=== PATIENT | male | born 1945 | race Caucasian/White ===

== ENCOUNTER 2023-06-08 13:26 | Outpatient (OUT) | payer MEDICARE, SELFPAY ==
--- NOTE | 2023-06-08 13:31 | ECG_ITS ---
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
--- NOTE | 2023-06-08 13:31 | XR_ITS ---
[address] [address] Patient Name: LING FELDER MRN: [id number] date: 1945 Sex: M Assigned Patient Location: [facility] Current Patient Location: [facility] Accession/Order Number: [id number] Exam Date: 06/08/2023 14:20 Report Date: 06/08/2023 14:43 At the request of: KHANH BROWN Procedure: XR chest 2V PROCEDURE: XR chest 2V DATE: 06/08/2023 1:20 PM CDT COMPARISONS: 02/20/2016 CLINICAL INDICATION: 77 years Male PRE OP EXAM FINDINGS: The cardiomediastinal silhouette and pulmonary vasculature are within normal limits. The lungs are clear. There is no evidence of pleural effusion or pneumothorax. XR/XR chest 2V IMPRESSION: Chest radiograph is within normal limits. Electronically authenticated by: RUPERT KAMARA Date: 06/08/2023 14:43
[2023-06-08 14:32] LABS: Basophils Absolute Auto 0.1 10^3/uL (0.0-0.1); Basophils Percent Auto 1.2 % (0.2-2.0); Eosinophils Absolute Auto 0.1 10^3/uL (0.0-0.7); Eosinophils Percent Auto 1.9 % (0.9-7.0); Hemoglobin 13.6 g/dL (14.0-18.0); Immature Granulocytes Abs Auto 0.01 10^3/uL (0.00-0.03); Immature Granulocytes Pct Auto 0.2 % (0.0-0.5); Lymphocytes Absolute Auto 0.9 10^3/uL (1.2-3.8); Lymphocytes Percent Auto 18.1 % (20.5-60.0); Mean Corpuscular HGB Conc 33.2 g/dL (29.9-35.2); Mean Corpuscular Hemoglobin 32.5 pg (25.9-34.0); Mean Corpuscular Volume 97.9 fL (80.0-94.0); Mean Platelet Volume 9.7 fL (9.5-13.5); Monocytes Absolute Auto 0.5 10^3/uL (0.3-0.8); Monocytes Percent Auto 10.7 % (1.7-12.0); Neutrophils Absolute Auto 3.3 10^3/uL (1.4-6.5); Neutrophils Percent Auto 67.9 % (43.0-75.0); Platelet Count 166 10^3/uL (150-450); Red Blood Count 4.19 10^6/uL (4.70-6.10); Red Cell Distribution Width 13.1 % (11.0-15.0); White Blood Count 4.9 10^3/uL (4.0-11.0)
[2023-06-08 14:35] LABS: Anion Gap 9.6; BUN Creatinine Ratio 5.5; Calcium 8.4 mg/dL (8.5-10.1); Carbon Dioxide 34.5 mmol/L (21.0-32.0); Chloride 101 mmol/L (98-107); Estimated GFR (African America >60 (>=60); Estimated GFR (Non-African Ame >60 (>=60); Glucose 141 mg/dL (74-106); Potassium 3.1 mmol/L (3.5-5.1); Sodium 142 mmol/L (136-145)
[2023-06-08 15:04] LABS: INR 1.08; Partial Thromboplastin Time 29.7 sec (22.3-36.2); Prothrombin Time 11.4 sec (9.0-11.6)
== END 2023-06-08 13:27 | disposition home or self-care (01) ==
LOC: PST 13:29
PROVIDERS: PCP Family Medicine; Visit Provider Otolaryngology
DX: Z01.810 Encounter for preprocedural cardiovascular examination (principal); Z01.812 Encounter for preprocedural laboratory examination; H69.82 Other specified disorders of Eustachian tube, left ear; J44.9 Chronic obstructive pulmonary disease, unspecified; Z79.01 Long term (current) use of anticoagulants
CPT/HCPCS: 36415; 71046; 80048; 85025; 85610; 85730; 93005

== ENCOUNTER 2023-06-15 08:25 | Emergency (ER) | payer MEDICARE, SELFPAY ==
[2023-06-15 08:27] VITALS: BP 135/71; PULSE 59; RESP 18; TEMP 36.4; O2SAT 96; BMI 21.3
--- NOTE | 2023-06-15 08:42 | ED_ITS ---
HPI - Extremity Problem General Chief complaint: Extremity Problem, Nontraumatic Stated complaint: LEFT FOOT WOUND Time Seen by Provider: 06/15/23 08:36 Source: patient Mode of arrival: Wheelchair Limitations: no limitations History of Present Illness HPI Narrative: this patient was sent here from outpatient surgery. He scheduled an elective procedure done today but they thought that he might have infection on his foot. In fact they noticed, the family that is, knows last night so dorsum of the foot left side starting to get red. He is not a diabetic. He has not had previous or recent fungal infections of the digits of his feet. He's otherwise no complaints. It's minimally tender. He is afebrile vital signs are stable. Related Data Home Medications Medication Instructions Recorded Confirmed albuterol sulfate 1.25 mg/3 mL 1.25 mg inhalation QID 06/08/23 06/08/23 solution for nebulization atorvastatin 10 mg tablet 10 mg PO DAILY 06/08/23 06/08/23 brimonidine 0.2 % eye drops 1 drp ophthalmic (eye) Q8H 06/08/23 06/08/23 citalopram 20 mg tablet (Celexa) 20 mg PO DAILY 06/08/23 06/08/23 donepezil 10 mg tablet (Aricept) 20 mg PO DAILY 06/08/23 06/08/23 dorzolamide 2 % eye drops 1 drp ophthalmic (eye) TID 06/08/23 06/08/23 fluticasone fur. 100 mcg-umeclid 1 inh inhalation DAILY 06/08/23 06/08/23 62.5 mcg-vilant 25 mcg inhalat.powder (Trelegy Ellipta) latanoprost 0.005 % eye drops 1 drp ophthalmic (eye) DAILY 06/08/23 06/08/23 meloxicam 7.5 mg tablet 7.5 mg PO DAILY 06/08/23 06/08/23 memantine 10 mg tablet 10 mg PO BID 06/08/23 06/08/23 Allergies Allergy/AdvReac Type Severity Reaction Status Date / Time No Known Drug Allergies Allergy Verified 06/08/23 13:43 [facility] Medical History (Updated 06/15/23 @ 08:45 by Clem Ewing MD) Surgical History (Updated 08/29/23 @ 13:54 by Anastasiia Jamil NP) Family History (Updated 06/08/23 @ 13:54 by Anastasiia Jamil NP) Other Family history of colon cancer Social History (Updated 06/08/23 @ 13:50 by Anastasiia Jamil NP) Within the past year, how often did you have a drink containing alcohol: never Score interpretation: A score less than 4 is consistent with normal alcohol consumption. Smoking status: Current every day smoker What tobacco products do you use: cigars Non-prescribed substance use: denies use Highest level of school completed/degree received: high school graduate Exam Narrative Exam Narrative: problem focused examination shows an be awake alert in no distress vital signs are stable does not appear ill or toxic. The extremity shows mild erythema over the dorsal surface of the left foot consistent with an early cellulitis. Intertriginous spaces are normal. There is no lymphangitis. There is no evidence of vascular insufficiency. He's had good pulsses. The rest the calf and lower extremity is normal. Constitutional Vital Signs, click to edit/add: Last Vital Signs Temp 97.6 F 06/15/23 08:27 Pulse 59 L 06/15/23 08:27 Resp 18 06/15/23 08:27 BP 135/71 06/15/23 08:27 Pulse Ox 96 06/15/23 08:27 O2 Del Method Room Air 06/15/23 08:27 Course Vital Signs Vital signs: Vital Signs Temperature 97.6 F 06/15/23 08:27 Pulse Rate 59 L 06/15/23 08:27 Respiratory Rate 18 06/15/23 08:27 Blood Pressure 135/71 06/15/23 08:27 Pulse Oximetry 96 06/15/23 08:27 Oxygen Delivery Method Room Air 06/15/23 08:27 Temperature 97.6 F 06/15/23 08:27 Pulse Rate 59 L 06/15/23 08:27 Respiratory Rate 18 06/15/23 08:27 Blood Pressure 135/71 06/15/23 08:27 Pulse Oximetry 96 06/15/23 08:27 Oxygen Delivery Method Room Air 06/15/23 08:27 MDM - Extremity (Nontraumatic) MDM Narrative Medical decision making narrative: this patient has an uncomplicated sepsis early cellulitis over the dorsum of the foot. We'll place him on Keflex. He felt primary care doctor Discharge Plan Discharge Chief Complaint: Extremity Problem, Nontraumatic Clinical Impression: Cellulitis of foot, left Patient Disposition: Home, Self-Care Time of Disposition Decision: 08:44 Prescriptions / Home Meds: No Action meloxicam 7.5 mg tablet 7.5 mg PO DAILY citalopram [Celexa] 20 mg tablet 20 mg PO DAILY memantine 10 mg tablet 10 mg PO BID donepezil [Aricept] 10 mg tablet 20 mg PO DAILY albuterol sulfate 1.25 mg/3 mL solution for nebulization 1.25 mg inhalation QID Trelegy Ellipta 100-62.5-25 mcg blister with device 1 inh inhalation DAILY brimonidine 0.2 % drops 1 drp ophthalmic (eye) Q8H latanoprost 0.005 % drops 1 drp ophthalmic (eye) DAILY dorzolamide 2 % drops 1 drp ophthalmic (eye) TID atorvastatin 10 mg tablet 10 mg PO DAILY Additional Instructions: Keflex four times a day/recheck with primary care doctor in three days Stand Alone Forms: Portal Instructions Referrals: JUSTIN LE [Primary Care Provider] - 1 week
== END 2023-06-15 08:52 | disposition home or self-care (01) ==
PROVIDERS: Emergency Provider Emergency Medicine Emergency Medical Services; PCP Family Medicine
DX: L03.116 Cellulitis of left lower limb (principal); Z79.899 Other long term (current) drug therapy; F17.290 Nicotine dependence, other tobacco product, uncomplicated
CPT/HCPCS: 99283

== ENCOUNTER 2023-06-28 14:38 | Outpatient (OUT) | payer MEDICARE, SELFPAY | END 2023-06-28 14:39 | disposition home or self-care (01) | LOC: PST 14:39 | PROVIDERS: PCP Family Medicine; Visit Provider Otolaryngology | DX: Z01.818 Encounter for other preprocedural examination (principal); H69.82 Other specified disorders of Eustachian tube, left ear; Z79.01 Long term (current) use of anticoagulants; J44.9 Chronic obstructive pulmonary disease, unspecified ==

== ENCOUNTER 2023-06-29 07:32 | Day surgery (SDC) | payer MEDICARE, SELFPAY ==
[2023-06-08 13:59] VITALS: BP 123/67; PULSE 60; RESP 20; TEMP 36.4; O2SAT 96; BMI 23.5
--- NOTE | 2023-06-15 08:23 | PC.NURSE ---
pt brought back to be admitted for or. Pt's left foot very red and hot to touch. Dr. Urbina notified and examined pt. Surgery cancellec and pt transported to ER. Monroe haines RN
[2023-06-29] VITALS (10 sets, daily range): BP systolic 126–149; BP diastolic 67–96; PULSE 74–87; RESP 10–22; TEMP 36.1–36.7; O2SAT 93–100; BMI 23.4
--- NOTE | 2023-06-29 | OP_ITS ---
OPERATION DATE: ??06/29/2023 PRIMARY CARE PHYSICIAN:? Janice Mckee M.D. SURGEON:? Zaynab Urbina M.D. PREOPERATIVE DIAGNOSIS:? Left otitis media with effusion and eustachian tube dysfunction. POSTOPERATIVE DIAGNOSIS:? Left otitis media with effusion and eustachian tube dysfunction. PROCEDURE:? Left myringotomy and tube and nasal endoscopy. ANESTHESIA:? General endotracheal. COMPLICATIONS:? None. FINDINGS:? Left serous effusion and no nasopharyngeal pathology evident. INDICATIONS:? This 77-year-old man presented with chronic left otitis media with effusion and conductive hearing loss. PROCEDURE:? Patient identified in the holding area and taken back to the OR where he was placed in the supine position.? After induction of general endotracheal anesthesia, the left ear was approached with the otomicroscope.? Cerumen cleaned from the canal using a cerumen curette and an anterior radial myringotomy was performed. ?Serous effusion was suctioned from the ear and a modified Don?s T-tube was folded, inserted through the myringotomy and opened in the middle ear using microdissection.? Afrin soaked pledgets were placed in the nose, and after waiting adequate time for decongestion, the left nose was approached with the nasal endoscope and the nasopharynx was carefully examined. There was no evidence of pathology in the nasopharynx that might have caused the patient?s eustachian tube dysfunction.? The patient was then awakened and taken to the recovery room in good condition. [facility]
[2023-06-29] MEDS: LACTATED RINGER'S SOLUTION 1,000 ML 50 ML IV (08:21)
== END 2023-06-29 11:41 | disposition home or self-care (01) ==
PROVIDERS: PCP Family Medicine; Visit Provider Otolaryngology
PROC: (CPT 31231; principal; 2023-06-29 08:40)
PROC: (CPT 31231; 2023-06-29 08:40)
DX: H69.82 Other specified disorders of Eustachian tube, left ear (principal); Z79.01 Long term (current) use of anticoagulants; J44.9 Chronic obstructive pulmonary disease, unspecified; F03.90 Unspecified dementia, unspecified severity, without behavioral disturbance, psychotic disturbance, mood disturbance, and anxiety; J45.20 Mild intermittent asthma, uncomplicated; E78.2 Mixed hyperlipidemia; H90.42 Sensorineural hearing loss, unilateral, left ear, with unrestricted hearing on the contralateral side; H65.92 Unspecified nonsuppurative otitis media, left ear; R33.9 Retention of urine, unspecified; Z79.899 Other long term (current) drug therapy; F17.290 Nicotine dependence, other tobacco product, uncomplicated; Z98.890 Other specified postprocedural states
CPT/HCPCS: 31231; 69436; 36415; 51798; 81001; 99284; J2704

== ENCOUNTER 2023-06-29 21:25 | Emergency (ER) | payer MEDICARE, SELFPAY ==
[2023-06-29 21:29] VITALS: BP 179/79; PULSE 71; RESP 20; TEMP 36.7; O2SAT 98; BMI 21.6
--- NOTE | 2023-06-29 21:41 | ED.MALEGU1 ---
HPI - Male Genitourinary General Chief complaint: Urogenital-Male Stated complaint: Post operative complications Time Seen by Provider: 06/29/23 21:34 Source: patient Mode of arrival: walk-in History of Present Illness HPI Narrative: tube placed under anesthesia left ear this AM. Able to urinate only once since he has been home. providing most of the history as the patient has dementia. He complains of pressure pain of his abdomen. Denies any pain of his ears. Emesis once tonight but no longer nauseated. No fever. Patient not able to provide his of history of difficulty starting urinary flow in the past etc Related Data Home Medications Medication Instructions Recorded Confirmed albuterol sulfate 1.25 mg/3 mL 1.25 mg inhalation QID 06/08/23 06/29/23 solution for nebulization atorvastatin 10 mg tablet 10 mg PO DAILY 06/08/23 06/29/23 brimonidine 0.2 % eye drops 1 drp ophthalmic (eye) Q8H 06/08/23 06/29/23 citalopram 20 mg tablet (Celexa) 20 mg PO DAILY 06/08/23 06/29/23 donepezil 10 mg tablet (Aricept) 20 mg PO DAILY 06/08/23 06/29/23 dorzolamide 2 % eye drops 1 drp ophthalmic (eye) TID 06/08/23 06/29/23 fluticasone fur. 100 mcg-umeclid 1 inh inhalation DAILY 06/08/23 06/29/23 62.5 mcg-vilant 25 mcg inhalat.powder (Trelegy Ellipta) latanoprost 0.005 % eye drops 1 drp ophthalmic (eye) DAILY 06/08/23 06/29/23 meloxicam 7.5 mg tablet 7.5 mg PO DAILY 06/08/23 06/29/23 memantine 10 mg tablet 10 mg PO BID 06/08/23 06/29/23 Allergies Allergy/AdvReac Type Severity Reaction Status Date / Time No Known Drug Allergies Allergy Verified 06/28/23 14:32 Review of Systems ROS Status of ROS 10 or more systems reviewed and unremarkable except as noted in history and below [facility] Medical History (Updated 06/29/23 @ 22:41 by Chet Hughes MD) Surgical History (Updated 06/08/23 @ 13:54 by Anastasiia Jamil NP) Family History (Updated 06/08/23 @ 13:54 by Anastasiia Jamil NP) Other Family history of colon cancer Social History (Updated 06/08/23 @ 13:50 by Anastasiia Jamil NP) Within the past year, how often did you have a drink containing alcohol: never Score interpretation: A score less than 4 is consistent with normal alcohol consumption. Smoking status: Current every day smoker What tobacco products do you use: cigars Non-prescribed substance use: denies use Highest level of school completed/degree received: high school graduate Exam Constitutional Vital Signs, click to edit/add: Last Vital Signs Temp 98.1 F 06/29/23 21:29 Pulse 71 06/29/23 21:29 Resp 06/29/23 21:29 BP 179/79 H 06/29/23 21:29 Pulse Ox 98 06/29/23 21:29 O2 Del Method Room Air 06/29/23 21:38 Common normals: no apparent distress, no limitations, alert and well nourished Eye Common normals: EOMs intact bilaterally Respiratory Common normals: normal respiratory effort, no retractions, no use of accessory muscles and clear to auscultation bilaterally Cardio Common normals: regular rate, regular rhythm, S1 normal heart sound and S2 normal heart sound GI Other: suprapubic tenderness and fullness Extremity Common normals: normal to inspection and full ROM Neuro Common normals: CN's II-XII intact bilaterally, moves all extremities and no sensory deficits noted Psych Appearance: grossly normal Course Vital Signs Vital signs: Vital Signs Temperature 98.1 F 06/29/23 21:29 Pulse Rate 06/29/23 21:29 Respiratory Rate 06/29/23 21:29 Blood Pressure 179/79 H 06/29/23 21:29 Pulse Oximetry 98 06/29/23 21:29 Oxygen Delivery Method Room Air 06/29/23 21:29 Temperature 98.1 F 06/29/23 21:29 Pulse Rate 71 06/29/23 21:29 Respiratory Rate 06/29/23 21:29 Blood Pressure 179/79 H 06/29/23 21:29 Pulse Oximetry 98 06/29/23 21:29 Oxygen Delivery Method Room Air 06/29/23 21:38 MDM - Male Genitourinary MDM Narrative Medical decision making narrative: patient presents with acute urinary retention. Had surgery of the left ear earlier today under anesthesia. Now presents and is not able to urinate. Bladder scan with >670cc urine. Alexander placed. UA with microscopic hematuria. patient discharged with leg bag in place and is to follow up with Urology Lab Data Labs: Lab Results 06/29/23 Range/Units 21:50 Urine Color Lt. yellow (YELLOW) Urine Clarity Clear (CLEAR) Urine pH 6.0 (5.0-9.0) Ur Specific [place] 1.010 (1.005-1.025) Urine Protein Negative (NEG/TRACE) mg/dL Urine Glucose (UA) Negative (NEGATIVE) mg/dL Urine Ketones Negative (NEGATIVE) mg/dL Urine Occult Blood Moderate A (NEGATIVE) Urine Nitrite Negative (NEGATIVE) Urine Bilirubin Negative (NEGATIVE) Urine Urobilinogen 0.2 (0.2-1.0) EU/dL Ur Leukocyte Esterase Negative (NEGATIVE) Urine RBC None seen (0-2) #/HPF Urine WBC None seen (NONE SEEN) #/HPF Ur Squamous Epith Cells None seen (NONE/RARE) #/LPF Urine Crystals None seen (None Seen) #/HPF Urine Bacteria None seen (NONE SEEN) #/HPF Urine Casts None seen (NONE SEEN) #/LPF Urine Mucus None seen (NONE SEEN) Discharge Plan Discharge Chief Complaint: Urogenital-Male Clinical Impression: Acute urinary retention Patient Disposition: Home, Self-Care Prescriptions / Home Meds: No Action meloxicam 7.5 mg tablet 7.5 mg PO DAILY citalopram [Celexa] 20 mg tablet 20 mg PO DAILY memantine 10 mg tablet 10 mg PO BID donepezil [Aricept] 10 mg tablet 20 mg PO DAILY albuterol sulfate 1.25 mg/3 mL solution for nebulization 1.25 mg inhalation QID Trelegy Ellipta 100-62.5-25 mcg blister with device 1 inh inhalation DAILY brimonidine 0.2 % drops 1 drp ophthalmic (eye) Q8H latanoprost 0.005 % drops 1 drp ophthalmic (eye) DAILY dorzolamide 2 % drops 1 drp ophthalmic (eye) TID atorvastatin 10 mg tablet 10 mg PO DAILY Instructions: Urinary Retention in Men (ED) Additional Instructions: follow up with Urologist Dr East. Call the office tomorrow for an appointment Stand Alone Forms: Portal Instructions Referrals: JUSTIN LE [Primary Care Provider] - 1 week
[2023-06-29 22:07] LABS: Bilirubin Urine NEGATIVE (NEGATIVE); Blood Urine MODERATE (NEGATIVE); Clarity Urine CLEAR (CLEAR); Color Urine LT. YELLOW (YELLOW); Glucose Urine UA NEGATIVE (NEGATIVE); Ketones Urine NEGATIVE (NEGATIVE); Leukocyte Esterase Urine NEGATIVE (NEGATIVE); Nitrite Urine NEGATIVE (NEGATIVE); Protein Urine NEGATIVE (NEG/TRACE); Urobilinogen Urine 0.2 EU/dL (0.2-1.0)
[2023-06-29 22:09] LABS: Urine Microscopic Indicated YES
[2023-06-29 22:27] LABS: Bacteria Urine NONE SEEN #/HPF (NONE SEEN); Cast Seen? NONE SEEN #/LPF (NONE SEEN); Crystals Seen? None Seen #/HPF (None Seen); Mucus Urine NONE SEEN (NONE SEEN); RBC Urine NONE SEEN #/HPF (0-2); Squamous Epithelial Cell Urine NONE SEEN #/LPF (NONE/RARE); WBC Urine NONE SEEN #/HPF (NONE SEEN)
== END 2023-06-29 23:01 | disposition home or self-care (01) ==
PROVIDERS: Emergency Provider Internal Medicine; PCP Family Medicine
DX: R33.9 Retention of urine, unspecified (principal); F03.90 Unspecified dementia, unspecified severity, without behavioral disturbance, psychotic disturbance, mood disturbance, and anxiety; Z98.890 Other specified postprocedural states; Z79.899 Other long term (current) drug therapy; F17.290 Nicotine dependence, other tobacco product, uncomplicated
CPT/HCPCS: 51798; 81001; 99284

== ENCOUNTER 2023-11-29 13:13 | Outpatient (OUT) | payer MEDICARE, SELFPAY ==
--- NOTE | 2023-11-29 13:26 | MR_ITS ---
The [address] [address] Patient Name: LING FELDER MRN: [id number] date: 1945 Sex: M Assigned Patient Location: LAB Current Patient Location: LAB Accession/Order Number: [id number] Exam Date: 11/29/2023 13:35 Report Date: 11/29/2023 15:18 At the request of: NON-STAFF PHYSICIAN Procedure: MR head/brain wo/w con EXAM: MR head/brain wo/w con HISTORY: Dementia F93.90, Gait Instability R26.81 COMPARISON: None. TECHNIQUE: Multisequence MRI brain was performed with and without intravenous contrast. FINDINGS: There is no restricted diffusion to suggest acute infarct. There is no midline shift, mass effect, or abnormal extraaxial fluid collections. There are no abnormal parenchymal or leptomeningeal enhancement. The cortical sulci and ventricular system are mildly enlarged, consistent with age appropriate cerebral atrophy. Multiple nonspecific scattered foci of T2/FLAIR signal abnormality are identified in the subcortical and periventricular white matter, likely reflect chronic microvascular ischemic changes. The major intracranial flow voids are visualized. The cerebellar tonsils are normal in position. The orbits demonstrate no suspicious enhancement or any focal lesions. There is complete opacification of right maxillary sinus with fluid intensity and mucosal enhancement. The mastoid air cells are clear. The calvarium and extracranial soft tissues are unremarkable. MR/MR head/brain wo/w con IMPRESSION: No acute intracranial abnormality or abnormal intracranial enhancement. Mild chronic microvascular ischemia and involutional changes. Complete opacification of right maxillary sinus with mucosal enhancement. Recommend clinical correlation for acute sinusitis. Electronically authenticated by: BOBBY DAUGHERTYU Date: 11/29/2023 15:18
[2023-11-29 13:39] LABS: Estimated GFR (African America >60 (>=60); Estimated GFR (Non-African Ame >60 (>=60)
[2023-11-29 13:54] LABS: Thyroid Stimulating Hormone 3.292 uIU/mL (0.358-3.740)
== END 2023-11-29 13:14 | disposition home or self-care (01) ==
PROVIDERS: PCP Family Medicine
DX: F03.90 Unspecified dementia, unspecified severity, without behavioral disturbance, psychotic disturbance, mood disturbance, and anxiety (principal); R41.3 Other amnesia; R26.81 Unsteadiness on feet
CPT/HCPCS: 36415; 70553; 82565; 82607; 84443; 84520; A9575